=== PATIENT | female | born 1975 | race Caucasian/White ===

== ENCOUNTER 2019-03-21 18:23 | Emergency (ER) | payer MEDICARE ==
--- NOTE | 2019-03-21 18:47 | RAD ---
XR Hand Rt 3 View STANDARD: 03/21/2019 6:28 PM CLINICAL INDICATION: Right hand injury COMPARISON: None. FINDINGS: Bones: No acute osseous abnormality. Joints: Joint spaces are preserved. Soft Tissue: Soft tissues are normal appearing. IMPRESSION: No acute osseous abnormality..
== END 2019-03-21 20:03 | disposition home or self-care (01) ==
LOC: ERS 18:23
DX: G56.01 Carpal tunnel syndrome, right upper limb (principal)

== ENCOUNTER 2019-06-05 12:21 | Outpatient (CLI) | payer MEDICARE ==
--- NOTE | 2019-06-05 13:50 | MRI ---
MRI LUMBAR SPINE: DATE: 06/05/2019. PROVIDED CLINICAL HISTORY: Lumbar radiculopathy. FINDINGS: Five lumbar vertebral bodies are assumed. Lumbar alignment appears normal. Vertebral body heights a ppear preserved. No focal concerning regional marrow signal abnormality apparent. The conus medulla ris is normal in signal and terminates at an appropriate level. The visualized extraspinal soft tiss ues appear unremarkable. At L1-2, there is no significant central canal or foraminal narrowing apparent. At L2-3, there is no significant central canal or foraminal narrowing apparent. At L3-4, there is no significant central canal or foraminal narrowing apparent. At L4-5, there is a broad-based disk bulge with a small superimposed central disk protrusion. There is bilateral facet arthritis. There is no significant foraminal or canal stenosis apparent. At L5-S1, there is a broad-based disk bulge with a superimposed small central disk protrusion. There is bilateral facet arthritis. There is no significant central canal or foraminal narrowing apparent . IMPRESSION: Lower lumbar disk and facet degenerative change as described. POS: ROLANDO
== END 2019-06-05 12:22 | disposition home or self-care (01) ==
LOC: SCSMRI 12:21
PROVIDERS: ATTEND Neurological Surgery
DX: M47.26 Other spondylosis with radiculopathy, lumbar region (principal); M51.16 Intervertebral disc disorders with radiculopathy, lumbar region; M47.817 Spondylosis without myelopathy or radiculopathy, lumbosacral region
CPT/HCPCS: 72148

== ENCOUNTER 2019-08-10 05:32 | Outpatient (CLI) | payer MEDICARE, OTHER ==
[2019-08-10 09:46] LABS: #Eosinphils 0.1 thou/uL (0.0-0.7); #Monocytes 0.4 thou/uL (0.11-0.59); #Neutrophils 2.5 thou/uL (1.40-6.50); %Basophils 0.9 % (0.0-1.0); %Eosinophils 1.3 % (0.0-10.0); %Lymphocytes 39.8 % (21.0-51.0); %Monocytes 7.1 % (0.0-10.0); %Neutrophils 50.8 % (42.0-75.0); Hemoglobin 12.9 g/dL (12.0-16.0); Mean Corpuscular HGB CONC 34.4 g/dL (32.0-36.0); Mean Corpuscular Hemoglobin 29.7 pg (27.0-31.0); Mean Corpuscular Volume 86.3 fL (78.0-98.0); Mean Platelet Volume 8.4 fL (7.4-10.4); Platelet Count 248 thou/uL (130-400); RBC Distribution Width 11.5 % (11.5-14.5); Red Blood Cell (RBC) Count 4.34 mill/uL (4.20-5.40); White Blood Cell (WBC) Count 4.9 thou/uL (4.8-10.8)
[2019-08-11 12:15] LABS: SARS-CoV-2 MS2 Positive; SARS-CoV-2 N Gene Negative; SARS-CoV-2 S Gene Negative; SARS-CoV-2 orf1ab Negative
== END 2019-08-10 05:33 | disposition home or self-care (01) ==
LOC: LABBT 05:32
PROVIDERS: ATTEND Orthopaedic Surgery
DX: Z01.812 Encounter for preprocedural laboratory examination (principal); Z11.59 Encounter for screening for other viral diseases; G56.03 Carpal tunnel syndrome, bilateral upper limbs
CPT/HCPCS: 85025; U0003; 87635

== ENCOUNTER 2019-08-15 06:39 | Day surgery (SDC) | payer MEDICARE ==
[2019-08-08 09:49] VITALS: BMI 27.4
--- NOTE | 2019-08-14 09:32 | HP ---
HISTORY OF PRESENT ILLNESS: The patient is a 44-year-old female with a several history of pain and numbness in both hands, right greater than left. In the right side, her numbness is worse in median nerve distribution, but she also has numbness in her 4th and 5th fingers. On the left side, it is primarily in median nerve distribution. She has not had an injury. She has had progressive symptoms despite rest, restriction of activities, anti-inflammatory medications, and splinting. PAST MEDICAL HISTORY: The patient is generally in good health. She has history of fibromyalgia and bipolar disorder. She has a history of previous alcohol abuse, chronic pain, depression, and hepatitis. CURRENT MEDICATIONS: Include; 1. Trazodone. 2. Gabapentin. 3. Duloxetine. 4. Ventolin inhaler. 5. Fluticasone. ALLERGIES: SHE IS ALLERGIC TO PENICILLIN, CLARITHROMYCIN, AND TRILEPTAL. FAMILY HISTORY: Otherwise unremarkable. SOCIAL HISTORY: Otherwise unremarkable. REVIEW OF SYSTEMS: Otherwise unremarkable. PHYSICAL EXAMINATION: GENERAL: Healthy female. HEENT: Unremarkable. NECK: Supple. CHEST: Clear. HEART: Regular rate and rhythm. ABDOMEN: Soft, nontender. PELVIC: Deferred. RECTAL: Deferred. GENITAL: Deferred. EXTREMITIES: Pertinent findings are related to the upper extremities. Examination of the right elbow reveals no swelling. There is full range of motion. There is a positive Tinel sign at the cubital tunnel. Examination of her right wrist reveals no atrophy. There is full range of motion. There is slight positive Tinel sign, positive Phalen test at the carpal tunnel. There is no definite sensory deficit. Motor exam is intact. There is good capillary refill. Examination of the left elbow reveals full range of motion. Negative Tinel sign at the cubital tunnel. Examination of the left wrist reveals mild positive Phalen's test, negative Tinel sign over the median nerve of the left wrist. NEUROLOGIC: No focal neurologic deficit. Electrodiagnostic studies performed by Dr. Marmolejo revealed moderately severe right carpal tunnel and right cubital tunnel syndrome and mild to moderate left carpal tunnel syndrome. IMPRESSION: 1. Bilateral carpal tunnel syndrome, right greater than left. 2. Right cubital tunnel syndrome. PLAN: Endoscopic possible open right carpal tunnel release and right cubital tunnel release. She may eventually require left carpal tunnel release when she has recovered from the right side. The nature of the surgery, length of recovery, and potential complications such as infection, loss of motion, incomplete relief, nerve injury, recurrence, need for additional treatment, and repeat surgery have been discussed in detail. Job ID: [id number]
[2019-08-15] MEDS ORDERED: Clindamycin/D5W 900 mg/50 ml Premix Bag ONE (06:48)
[2019-08-15] MEDS ORDERED: Scopolamine 1.5 mg/72 hour Patch ONE (08:05)
[2019-08-15] MEDS ORDERED: Midazolam HCl 2 mg/2 ml Vial ONE ×2 (08:05→08:34)
[2019-08-15] MEDS ORDERED: Propofol 500 MG/50 ML VIAL ONE (08:34)
[2019-08-15] MEDS ORDERED: Lidocaine 1% (PF) 30 ML VIAL ONE (08:36)
[2019-08-15] MEDS ORDERED: Famotidine/PF 20 mg/2ml Vial ONE (08:48)
[2019-08-15] MEDS ORDERED: Bupivacaine HCl 0.5%/Epinephrine 1:200,000/PF 30 ml Vial ONE (09:02)
[2019-08-15] MEDS ORDERED: Lidocaine 1% PF 5 ML VIAL ONE (10:47)
[2019-08-15] MEDS ORDERED: Ketorolac Tromethamine 30 MG/ML VIAL ONE (10:47)
--- NOTE | 2019-08-15 11:31 | OP ---
DATE OF PROCEDURE: 08/15/2019 ANESTHESIA: General. PREOPERATIVE DIAGNOSES: 1. Right cubital tunnel syndrome. 2. Right carpal tunnel syndrome. POSTOPERATIVE DIAGNOSES: 1. Right cubital tunnel syndrome. 2. Right carpal tunnel syndrome. PROCEDURES PERFORMED: 1. Right cubital tunnel release. 2. Right endoscopic carpal tunnel release. DESCRIPTION OF PROCEDURE: After satisfactory anesthesia was induced in a supine position, the patient was prepped and draped in routine manner. Right arm was elevated, exsanguinated with an Esmarch bandage, and the tourniquet inflated to 250 mmHg. The elbow was addressed first. A longitudinal incision was made centered over the medial epicondyle and carried down through the subcutaneous tissues. The subcutaneous tissues were injected with 10 mL of a mixture of 1% lidocaine and 0.5% Marcaine with epinephrine. Bleeding points were controlled with Bovie cautery and also with bipolar cautery. Using sharp and blunt dissection, the medial epicondyle was identified and the cubital tunnel then opened with scissors and then split proximally and distally and then the ulnar nerve gently freed up. The cubital tunnel was opened from the medial intermuscular septum to the 2 heads of the flexor carpi ulnaris. The nerve was gently freed up. It was quite tight and scarred in, but no attempt was made to totally skeletonize the nerve. The nerve appeared to be free and mobile. The wound was then thoroughly irrigated and additional 10 mL of the lidocaine and Marcaine mixture was injected in subcutaneous tissues. The subcutaneous tissues were closed with interrupted 2-0 Vicryl and the skin closed with a running subcuticular 3-0 V-Loc and SurgiSeal skin adhesive. Attention was then directed to the wrist. A 2 cm transverse incision was made in the proximal wrist flexion crease, carried down through subcutaneous tissues and bleeding points were controlled with Bovie cautery. Using sharp and blunt dissection, a distally based flap at the deep forearm fascia was developed and retracted distally. Palmaris longus tendon was retracted radially. Proximal edge of the deep forearm fascia was split under direct visualization with small scissors to make sure there was no proximal impingement of the median nerve. Synovial elevator was introduced beneath the transverse carpal ligament and the synovium cleaned from the undersurface. Carpal tunnel dilators were inserted. The [place] endoscopic carpal tunnel system was introduced beneath the transverse carpal ligament. The distal edge of the ligament was easily identified. The ligament was then divided in a distal to proximal direction by pulling the trigger of the assembly and engaging the knife and withdrawing the scope proximally. This was done in several stages to make sure there was complete division of the transverse carpal ligament, which was documented with video printer. After withdrawing the scope, the carpal tunnel dilator could be inserted into the carpal tunnel and there was markedly improved passage in subcutaneous position of the instrument. The scope was reintroduced into the carpal tunnel, confirming that there was wide separation of the 2 leaves of the transverse carpal ligament. The scope was withdrawn. The wound was thoroughly irrigated and closed with running subcuticular 3-0 nylon. Sterile bulky compressive dressing was placed on the arm. The tourniquet released after 40 minutes. The patient was immobilized in a long-arm plaster splint and arm sling. She was awakened and taken to recovery room in stable condition. There were no apparent intraoperative complications. The estimated blood loss was negligible. The patient will be discharged home in satisfactory condition, instructed on ice and elevation, given written wound care instructions. She will be rechecked in my office in approximately 10 days or sooner if there are any problems prior to that time. Job ID: [id number]
== END 2019-08-15 11:32 | disposition home or self-care (01) ==
LOC: SDC 06:39
PROVIDERS: ATTEND Orthopaedic Surgery
PROC: 01N40ZZ Release Ulnar Nerve, Open Approach (ICD-10-PCS; principal; 2019-08-15)
PROC: 01N54ZZ Release Median Nerve, Percutaneous Endoscopic Approach (ICD-10-PCS; 2019-08-15)
DX: G56.21 Lesion of ulnar nerve, right upper limb (principal); G56.03 Carpal tunnel syndrome, bilateral upper limbs; M79.7 Fibromyalgia; F31.9 Bipolar disorder, unspecified; F10.11 Alcohol abuse, in remission; G89.29 Other chronic pain; Z79.899 Other long term (current) drug therapy; Z88.0 Allergy status to penicillin; Z88.1 Allergy status to other antibiotic agents; Z88.8 Allergy status to other drugs, medicaments and biological substances; Z91.018 Allergy to other foods
CPT/HCPCS: J0670; J2001; J2250; J2704; J3490; S0028

== ENCOUNTER 2019-11-02 07:09 | Outpatient (CLI) | payer MEDICARE, OTHER ==
[2019-11-03 14:54] LABS: SARS-CoV-2 MS2 Positive; SARS-CoV-2 N Gene Negative; SARS-CoV-2 S Gene Negative; SARS-CoV-2 by NAA Not Detected (NotDetected); SARS-CoV-2 orf1ab Negative
== END 2019-11-02 07:10 | disposition home or self-care (01) ==
LOC: LABBT 07:09
PROVIDERS: ATTEND Orthopaedic Surgery
DX: G56.02 Carpal tunnel syndrome, left upper limb (principal); Z20.828 Contact with and (suspected) exposure to other viral communicable diseases
CPT/HCPCS: 87635; U0003